=== PATIENT | male | born 1980 | race Caucasian/White ===

== ENCOUNTER 2020-04-12 14:03 | Emergency (ER) | payer OTHER ==
[~2020-04-12] VITALS: Ht 185.4 cm; Wt 90.0 kg
[2020-04-12 14:10] VITALS: BP 161/73
--- NOTE | 2020-04-12 14:36 | PHYS DOC ---
Past History Past Medical History: Anxiety, Arthritis, GERD, Hypertension, Other Additional Past Medical Histor: insomnia Additional Past Surgical Histo: labrum repair R shoulder Alcohol Use: Heavy Additional Alcohol Information: 2 shots daily Adult General Chief Complaint Chief Complaint: BACK PAIN OR INJURY [facility] HPI Patient is a 39-year-old male patient with history of acid reflux, arthritis, hypertension, anxiety, who presents to the ED today complaining of a 10 out of 10 right mid and low back pain, symptoms began this morning. Patient denies any injuries. Denies any pain radiating to bilateral lower extremities, describes the pain as sharp and intermittent worse with certain movements. Denies any urinary symptoms. Denies any loss of bowel/bladder function, reports pain is relieved on laying on his back. Patient is concerned he could have a kidney stone as well, he states he has never had a kidney stone before. He is on celebr ex for arthritis Review of Systems Review of Systems Constitutional: Denies fever or chills [] Eyes: Denies change in visual acuity, redness, or eye pain [] HENT: Denies nasal congestion or sore throat [] Respiratory: Denies cough or shortness of breath [] Cardiovascular: No additional information not addressed in HPI [] GI: Denies abdominal pain, nausea, vomiting, bloody stools or diarrhea [] : Denies dysuria or hematuria [] Musculoskeletal: Reports right mid back pain, right low back pain. Integument: Denies rash or skin lesions [] Neurologic: Denies headache, focal weakness or sensory changes [] Endocrine: Denies polyuria or polydipsia [] All other systems were reviewed and found to be within normal limits, except as documented in this note. Allergies Allergies Allergies Coded Allergies Type Severity Reaction Last Updated Verified No Known Drug Allergies 04/12/20 No Physical Exam Physical Exam Constitutional: Well developed, well nourished, no acute distress, non-toxic appearance. [] HENT: Normocephalic, atraumatic, bilateral external ears normal, oropharynx moist, no oral exudates, nose normal. [] Eyes: PERRLA, EOMI, conjunctiva normal, no discharge. [] Neck: Normal range of motion, no tenderness, supple, no stridor. [] Cardiovascular:Heart rate regular rhythm, no murmur [] Lungs & Thorax: Bilateral breath sounds clear to auscultation [] Abdomen: Bowel sounds normal, soft, no tenderness, no masses, no pulsatile masses. [] Skin: Warm, dry, no erythema, no rash. [] Back: Patient is laying on his stomach. No tenderness, no CVA tenderness. [] Extremities: No tenderness, no cyanosis, no clubbing, ROM intact, no edema. [] Neurologic: Alert and oriented X 3, normal motor function, normal sensory function, no focal deficits noted. [] Psychologic: Affect normal, judgement normal, mood normal. [] Current Patient Data Vital Signs Vital Signs Date Time Temp Pulse Resp B/P (MAP) Pulse Ox O2 Delivery O2 Flow Rate FiO2 04/12/20 14:10 98.2 63 18 161/73 (102) 100 EKG EKG [] Radiology/Procedures Radiology/Procedures []PROCEDURE: CT ABDOMEN PELVIS WO CONTRAST CT ABDOMEN+PELVIS WO History: Reason: right flank/back pain onset this morning / Spl. Instructions: / History: Technique: Noncontrast examination of the abdomen and pelvis. Coronal and sagittal reconstructions were performed. Exposure: One or more of the following individualized dose reduction techniques were utilized for this examination: 1. Automated exposure control 2. Adjustment of the mA and/or kV according to patient size 3. Use of iterative reconstruction technique. Comparison: None Findings: Lower chest: Linear right lower lobe atelectasis or scarring. Abdomen and pelvis: Right posterior gluteal subcutaneous foci of gas, may relate to medication injection site. The liver, spleen, adrenal glands, pancreas and gallbladder are unremarkable. Unremarkable noncontrast. The kidneys. No hydronephrosis. No renal calculi. No ureteral or urinary bladder calculus. Normal appendix. No evidence of bowel obstruction. Numerous mildly prominent mesenteric lymph nodes. No ascites. Bones: No pathologic osseous lesions. Impression: 1. No acute abdominal or pelvic pathology. No obstructing urolithiasis. 2. Mildly prominent mesenteric lymph nodes, likely reactive. 3. Right gluteal subcutaneous foci of gas, may relate to medication injection site. Recommend clinical correlation. Electronically signed by: Jason Duron DO (04/12/2020 3:12 PM) [facility] DICTATED AND SIGNED BY: JASON DURON DO DATE: 04/12/20 1504 CC: ROSE MARIE MARRERO APRN; NON,STAFF ~MTH0 0 Heart Score Risk Factors: Risk Factors: DM, Current or recent (<one month) smoker, HTN, HLP, family history of CAD, obesity. Risk Scores: Risk Factors: DM, Current or recent (<one month) smoker, HTN, HLP, family history of CAD, obesity. Course & Med Decision Making Course & Med Decision Making Pertinent Labs and Imaging studies reviewed. (See chart for details) This is a 39-year-old male patient presenting to the ED today complaining of right mid and low back pain, symptoms began this morning, no known injury. Also concerned he could have a kidney stone. Has no UTI symptoms or kidney stone significant symptoms. Currently on Celebrex UA negative for infection or blood. CT negative for acute findings. D/c with Flexeril. F/u with PCP in 1-2 weeks Laverne Disclaimer Laverne Disclaimer This electronic medical record was generated, in whole or in part, using a voice recognition dictation system. Departure Departure: Impression: Primary Impression: Low back pain Disposition: 01 DC HOME SELF CARE/HOMELESS Condition: STABLE Referrals: NON,STAFF (PCP) follow up with your doctor in 1-2 weeks Patient Instructions: Back Pain, Adult Additional Instructions: You were evaluated in the emergency room for back pain, your CAT scan of the abdomen and pelvic was negative for any acute findings, your nose negative for infection. Try and get a heating pad and use it on your back. Take the muscle relaxer prescribed as needed. Follow-up with your doctor in 1 to 2 weeks Scripts Cyclobenzaprine Hcl (CYCLOBENZAPRINE HCL) 10 Mg Tablet 1 TAB PO TID, #30 TAB Prov: ROSE MARIE MARRERO APRN 04/12/20 Problem Qualifiers Primary Impression: Low back pain Chronicity: acute Back pain laterality: right Sciatica presence: without sciatica Qualified Codes: M54.5 - Low back pain ROSE MARIE MARRERO APRN Apr 12, 2020 14:36
[2020-04-12] MEDS ORDERED: KETOROLAC 60 MG/2 ML VIAL. IM ONE (14:45)
[2020-04-12 14:48] LABS: BILIRUBIN,URINE NEG (NEG); CLARITY,URINE CLEAR; COLOR,URINE YELLOW; GLUCOSE,URINE NEG (NEG)
[2020-04-12 14:49] LABS: BACTERIA,URINE 0 /HPF (0-FEW); NITRITE,URINE NEG (NEG); RBC,URINE 0 /HPF (0-2); UROBILINOGEN,URINE 0.2 mg/dL (0.2 mg/dL); WBC,URINE 0 /HPF (0-4)
--- NOTE | 2020-04-12 15:15 | RAD ---
CT ABDOMEN+PELVIS WO History: Reason: right flank/back pain onset this morning / Spl. Instructions: / History: Technique: Noncontrast examination of the abdomen and pelvis. Coronal and sagittal reconstructions we re performed. Exposure: One or more of the following individualized dose reduction techniques were utilized for thi s examination: 1. Automated exposure control 2. Adjustment of the mA and/or kV according to patient size 3. Use of iterative reconstruction technique. Comparison: None Findings: Lower chest: Linear right lower lobe atelectasis or scarring. Abdomen and pelvis: Right posterior gluteal subcutaneous foci of gas, may relate to medication inject ion site. The liver, spleen, adrenal glands, pancreas and gallbladder are unremarkable. Unremarkable noncontrast. The kidneys. No hydronephrosis. No renal calculi. No ureteral or urinary bl adder calculus. Normal appendix. No evidence of bowel obstruction. Numerous mildly prominent mesenteric lymph nodes. No ascites. Bones: No pathologic osseous lesions. Impression: 1. No acute abdominal or pelvic pathology. No obstructing urolithiasis. 2. Mildly prominent mesenteric lymph nodes, likely reactive. 3. Right gluteal subcutaneous foci of gas, may relate to medication injection site. Recommend clinic al correlation. Electronically signed by: Balaji Conti DO (04/12/2020 3:12 PM) [facility]
[2020-04-12] MEDS ORDERED: CYCL-331 PO (15:21)
== END 2020-04-12 15:28 | disposition home or self-care (01) ==
LOC: ER 14:03
DX: M54.5 Low back pain (principal); K21.9 Gastro-esophageal reflux disease without esophagitis; I10 Essential (primary) hypertension
CPT/HCPCS: 74176; 81001; 96372; 99284; J1885